=== PATIENT | male | born 1985 ===

== ENCOUNTER 2018-01-05 10:53 | Outpatient (CLI) | payer OTHER ==
[~2018-01-05] VITALS: Ht 177.8 cm; Wt 101.6 kg
[2018-01-05] MEDS ORDERED: LIPO-FLAVONOID1 EACH PO (11:58)
== END 2018-01-05 11:10 | disposition home or self-care (01) ==
LOC: OFIC 805 10:53
DX: J34.2 Deviated nasal septum (principal); H93.13 Tinnitus, bilateral; R42 Dizziness and giddiness